=== PATIENT | male | born 1975 | race Caucasian/White ===

== ENCOUNTER 2022-05-24 12:54 | Emergency (ER) | payer OTHER, SELFPAY ==
[2022-05-24 13:09] VITALS: BP 164/97; PULSE 89; RESP 16; TEMP 36.7; O2SAT 96
--- NOTE | 2022-05-24 13:17 | ED.URI ---
HPI - URI/Sore Throat General Chief Complaint: Upper Respiratory Infection Stated Complaint: Shortness of Breath,Cough,Fatigue Time Seen by Provider: 05/24/22 13:17 Source: patient Mode of arrival: ambulatory Limitations: no limitations History of Present Illness HPI Narrative: 47-year-old male presents with complaint of cough for 3 weeks. Reports that he did a telehealth visit and was given 5 days of prednisone that did not help. He reports that cough is worse at night and in the morning. History of bronchitis. Reports pain when taking deep breath, short of breath with exertion. Afebrile. Speaking in full sentences, no respiratory distress at this time. All systems reviewed and negative except as noted above. Related Data Allergies Allergy/AdvReac Type Severity Reaction Status Date / Time Sulfa (Sulfonamide Allergy Mild Verified 02/04/17 17:01 Antibiotics) Review of Systems Review of Systems: CONSTITUTIONAL: Denies fever, chills, or sweats. Reports fatigue. EYES: Denies visual changes, redness, or discharge. ENT: Denies rhinorrhea, congestion, sore throat, or otalgia. CARDIOVASCULAR: Denies chest pain, palpitations, or edema. RESPIRATORY: Reports cough and dyspnea on exertion. GASTROINTESTINAL: Denies abdominal pain, nausea, vomiting, or diarrhea. GENITOURINARY: Denies dysuria or hematuria. SKIN: Denies rash or itching. MUSCULOSKELETAL: Denies back pain, joint pain, or myalgia. NEUROLOGIC: Denies headache, numbness, or weakness. PSYCHIATRIC: Denies anxiety or depression. All other systems reviewed are negative, except as documented in HPI. PMFSH Comments At time of signature, agree with nursing past medical, surgical, social and family history. There is no relevant family history pertinent to the presenting complaint. Exam Narrative: GENERAL: This is a well-nourished, well-developed patient, in no apparent distress. HEAD: normocephalic, atraumatic. EYES: PERRL. Sclera clear/white. Vision is grossly intact. EARS: External ears normal, auditory canals clear and without drainage, TMs normal without perforation. Hearing grossly intact. NOSE: External nose normal with no obvious nasal discharge, nares without redness, no rhinorrhea. THROAT: Mucous membranes moist, posterior pharynx clear. NECK: Neck supple, non-tender without lymphadenopathy, masses or thyromegaly. CARDIOVASCULAR: Regular rate and rhythm without murmurs, gallops, or rubs. RESPIRATORY: decreased lung sounds bilateral lower lobes, otherwise normal. no wheezing or rhonchi SKIN: warm, Dry, intact with no suspicious lesions or rash, good texture and turgor. NEURO: awake, alert, and oriented to person, place and time. There were no obvious focal neurologic abnormalities. EXTREMITIES: No joint tenderness, effusion, or edema noted. Course Course Level of Care: Express Care Visit Vital Signs Vital signs: Vital Signs Temperature 36.7 C 05/24/22 13:09 Pulse Rate 89 05/24/22 13:09 Respiratory Rate 16 05/24/22 13:09 Blood Pressure 164/97 H 05/24/22 13:09 Pulse Oximetry 96 05/24/22 13:09 Oxygen Delivery Room Air 05/24/22 13:09 Temperature 36.7 C 05/24/22 13:09 Pulse Rate 89 05/24/22 13:09 Respiratory Rate 16 05/24/22 13:09 Blood Pressure 164/97 H 05/24/22 13:09 Pulse Oximetry 96 05/24/22 13:09 Oxygen Delivery Room Air 05/24/22 13:09 reviewed MDM - URI/Sore Throat MDM Narrative Medical decision making narrative: patient offered chest x-ray to rule out pneumonia but he did not feel was necessary. Prefers that he just gets a Z-Josep and is not exposed to the radiation. Recommend follow-up with his PCP. Will give antibiotic due to duration of symptoms And decreased lung sounds to lower lung humphries. Patient is aware of diagnosis, understands and agrees to treatment plan. Anticipatory guidance given. Patient agrees to follow-up as directed and is aware of reasons to seek care at the emergency depa
== END 2022-05-24 13:34 | disposition home or self-care (01) ==
PROVIDERS: Emergency Provider Nurse Practitioner Family; PCP Family Medicine
DX: J20.9 Acute bronchitis, unspecified (principal); E78.00 Pure hypercholesterolemia, unspecified; I10 Essential (primary) hypertension
CPT/HCPCS: 99213; G0463